=== PATIENT | male | born 1995 | race Hispanic/Latino ===

== ENCOUNTER 2025-04-18 21:13 | Emergency (ER) | payer OTHER ==
[~2025-04-18] VITALS: Ht 180.3 cm; Wt 109.8 kg
[2025-04-18] MEDS ORDERED: predniSONE 20 MG TAB PO ONE (23:00)
[2025-04-18] MEDS ORDERED: OLANZapine 10 MG TABDIS PO ONE (23:00)
[2025-04-18] MEDS ORDERED: GABAPENTIN100 MG PO (23:02)
[2025-04-18] MEDS ORDERED: PREDNISONE20 MG PO (23:06)
[2025-04-18 23:29] LABS: BASOPHILS 0.9 % (0.2-1.2); EOSINOPHILS 2.3 % (0.8-7.0); LYMPHOCYTES 49.6 % (21.8-53.1); MCH 28.2 PG (25.7-32.2); MCHC 34.3 g/dL (32.3-36.5); MCV 82.3 fL (79.0-92.2); MONOCYTES 7.2 % (5.3-12.2); NEUTROPHILS 39.5 % (34.0-67.9); RBC 5.21 M/uL (4.63-6.08)
[2025-04-18 23:39] LABS: ALT (SGPT) 34.0 U/L (14-59); AST (SGOT) 10.0 U/L (15-37); GLOMERULAR FILTRATION RATE,EST 124.0 mL/min (>60); PROTEIN, TOTAL 7.8 g/dL (6.4-8.2); UREA NITROGEN 13.0 mg/dL (7-18)
[2025-04-18 23:52] VITALS: BP 148/112
[2025-04-22 00:36] LABS: TREPONEMA PALLIDUM (VDRL),SER Non Reactive (Non Reactive)
== END 2025-04-18 23:55 | disposition home or self-care (01) ==
LOC: ED 21:13
PROVIDERS: Family Medicine
DX: G50.0 Trigeminal neuralgia (principal)
CPT/HCPCS: 36415; 70450; 80053; 85025; 85651; 86140; 86592; 86780; 99284-25; A9270; J7512